=== PATIENT | female | born 1940 | race Caucasian/White ===

== ENCOUNTER 2021-04-07 12:23 | Emergency (ER) | payer MEDICARE, OTHER ==
[~2021-04-07 12:23] MED LIST: ALENDRONATE SOD70 MG PO; ASPIRIN CHEWABL81 MG PO; ASPIRIN EC81 MG PO; BENAZEPRIL HCL20 MG PO; BRILINTA90 MG PO; COREG 6.25MG6.25 MG PO; GARLIC1 EAC1 PO; LISINOPRIL5 MG PO; LOVAZA1 GM PO; MOBIC15 MG PO; NORVASC5 MG PO; PROTONIX 40MG T40 MG PO; REPATHA SC; REPATHA SU140 MG/1 M IJ; VITAMIN D2000 UNI1 PO; VITAMIN D35000 UNIT PO; XANAX0.25 MG PO; XARELTO10 MG PO; ZANTAC150 MG PO; ZESTRIL5 MG PO
[2021-04-07 15:10] LABS: BASOPHIL 0.3 % (0-2); EOSINOPHIL 0.6 % (0-7); HCT 43.7 % (37.0-47.0); HGB 14.7 g/dl (12.5-16.0); LYMPHOCYTE 28.5 % (15-48); MCH 31.2 pg (25.0-31.0); MCHC 33.6 g/dL (32.0-36.0); MCV 92.8 fL (78.0-100.0); MONOCYTE 7.5 % (0-12); MPV 9.2 fL (6.0-9.5); NEUTROPHIL 62.9 % (41-80); NRBC 0; PLT 354 K/uL (150-400); RBC 4.71 M/uL (4.20-5.40); RDW 13.3 % (11.5-14.0); WBC 6.3 K/uL (4.0-10.5)
[2021-04-07 15:57] LABS: BUN/CREAT RATIO (CALC) 10.3 RATIO; CREATININE 0.68 mg/dL (0.51-0.95)
[2021-04-07] MEDS ORDERED: ATARAX25 MG PO (16:07)
[2021-06-08] MEDS ORDERED: BUSPAR5 MG PO (15:16)
[2021-06-08] MEDS ORDERED: DIOVAN HCT 80-1 EACH PO (15:16)
[2021-06-08] MEDS ORDERED: BIOTIN1000 MCG PO (15:17)
[2021-06-08] MEDS ORDERED: VIT D3 PO (15:18)
[2021-06-09] MEDS ORDERED: TRAZODONE HCL50 MG PO (13:58)
== END 2021-04-07 16:30 | disposition home or self-care (01) ==
LOC: FER 12:23
PROVIDERS: Emergency Medicine
DX: I10 Essential (primary) hypertension (principal); Z79.899 Other long term (current) drug therapy
CPT/HCPCS: 36415; 80048; 84484; 85025; 93005

== ENCOUNTER 2021-06-29 05:36 | Day surgery (SDC) | payer MEDICARE, OTHER ==
[~2021-06-29] VITALS: Ht 158 cm; Wt 71.0 kg
[~2021-06-29 05:36] MED LIST changes: +ATARAX25 MG PO; +BIOTIN1000 MCG PO; +BUSPAR5 MG PO; +DIOVAN HCT 80-1 EACH PO; +TRAZODONE HCL50 MG PO; +VIT D3 PO
[2021-06-29] MEDS ORDERED: XARELTO10 MG PO (13:32)
[2021-06-29] MEDS ORDERED: OXYCODONE-ACET1 EAC1 PO (13:32)
[2021-06-29] MEDS ORDERED: FEOSOL325 MG PO (13:32)
--- NOTE | 2021-06-29 16:28 | NUR ---
PT HAD LEFT TOTAL KNEE REPLACEMENT THIS DATE. SHE WILL RETURN HOME. SHE HAS A ROLLING WALKER. [facility] TO DELIVER A 01/19 UPON DISCHARGE. PT. REQUESTED [facility] OUTPT. THERAPY. FIRST APPT. IS 07/01/2021 @ 1:00 P.M. PT. SIGNED REQUEST FORM.
[2021-06-30 06:57] LABS: BASOPHIL 0.1 % (0-2); EOSINOPHIL 0 % (0-7); HCT 33.5 % (37.0-47.0); HGB 11.2 g/dl (12.5-16.0); LYMPHOCYTE 6.2 % (15-48); MCH 31.4 pg (25.0-31.0); MCHC 33.4 g/dL (32.0-36.0); MCV 93.8 fL (78.0-100.0); MONOCYTE 5.3 % (0-12); MPV 9.3 fL (6.0-9.5); NRBC 0; PLT 284 K/uL (150-400); RBC 3.57 M/uL (4.20-5.40); RDW 12.2 % (11.5-14.0); WBC 11.1 K/uL (4.0-10.5)
[2021-06-30 07:05] LABS: BUN/CREAT RATIO (CALC) 13.1 RATIO; CREATININE 0.61 mg/dL (0.51-0.95); POTASSIUM 3.6 mmol/L (3.5-5.1)
== END 2021-06-30 10:55 | disposition home or self-care (01) ==
LOC: FAS 05:36
PROVIDERS: Legal Medicine
DX: M17.12 Unilateral primary osteoarthritis, left knee (principal); M21.062 Valgus deformity, not elsewhere classified, left knee; G89.18 Other acute postprocedural pain; I25.2 Old myocardial infarction; I25.10 Atherosclerotic heart disease of native coronary artery without angina pectoris; E78.5 Hyperlipidemia, unspecified; I10 Essential (primary) hypertension; F41.9 Anxiety disorder, unspecified; K21.9 Gastro-esophageal reflux disease without esophagitis; Z95.5 Presence of coronary angioplasty implant and graft; Z88.8 Allergy status to other drugs, medicaments and biological substances; Z79.82 Long term (current) use of aspirin; Z79.899 Other long term (current) drug therapy
CPT/HCPCS: 36415; 73560; 80048; 85025; 86850; 86880; 86900; 86901; 94010; 97116; 97161; 97165; 97535; C1713; C1776; J0171; J0697; J0735; J1100; J1885; J2250; J2270; J2405; J2704; J2795; J3010; J7120

== ENCOUNTER 2021-09-04 08:43 | Emergency (ER) | payer MEDICARE, OTHER ==
[~2021-09-04] VITALS: Ht 160 cm; Wt 72.6 kg
[~2021-09-04 08:43] MED LIST changes: +FEOSOL325 MG PO; +OXYCODONE-ACET1 EAC1 PO
[2021-09-04 09:51] LABS: BASOPHIL 0.3 % (0-2); EOSINOPHIL 0.7 % (0-7); HCT 43.4 % (37.0-47.0); HGB 14.8 g/dl (12.5-16.0); LYMPHOCYTE 18.2 % (15-48); MCH 31.2 pg (25.0-31.0); MCHC 34.1 g/dL (32.0-36.0); MCV 91.6 fL (78.0-100.0); MONOCYTE 8.4 % (0-12); MPV 9.5 fL (6.0-9.5); NEUTROPHIL 72.3 % (41-80); NRBC 0; PLT 323 K/uL (150-400); RBC 4.74 M/uL (4.20-5.40); RDW 12.3 % (11.5-14.0)
[2021-09-04 10:22] LABS: CORONAVIRUS 2019 SARS-COV-2 NEGATIVE (NEGATIVE); INFLUENZA A NAA NEGATIVE (NEGATIVE)
[2021-09-04 10:31] LABS: BILIRUBIN NEGATIVE (NEGATIVE); BLOOD TRACE-INTACT Ery/uL (NEGATIVE); CLARITY CLEAR (CLEAR); COLOR YELLOW (YELLOW); GLUCOSE (U) NORMAL (NORMAL); LEUKOCYTES 3+ Leu/uL (NEGATIVE); NITRITE NEGATIVE (NEGATIVE); PROTEIN NEGATIVE (NEGATIVE); UROBILINOGEN 0.2 mg/dL (0.2-1.0)
[2021-09-04 10:43] LABS: BACTERIA 1+; URINARY RBC RARE; URINARY WBC 20-50
[2021-09-04 10:46] LABS: ALBUMIN 3.8 g/dL (3.4-5.0); BILIRUBIN - TOTAL 0.5 mg/dL (0.2-1.0); BUN/CREAT RATIO (CALC) 9.7 RATIO; CREATININE 0.72 mg/dL (0.51-0.95); GLOBULIN (CALCULATION) 3.3 g/dL; POTASSIUM 3.2 mmol/L (3.5-5.1); TOTAL PROTEIN 7.1 g/dL (6.4-8.2)
[2021-09-04] MEDS ORDERED: MACROBID100 MG PO (11:00)
== END 2021-09-04 12:15 | disposition home or self-care (01) ==
LOC: FER 08:43
PROVIDERS: Internal Medicine
DX: N39.0 Urinary tract infection, site not specified (principal); E87.6 Hypokalemia; I25.2 Old myocardial infarction; I10 Essential (primary) hypertension; Z20.822 Contact with and (suspected) exposure to COVID-19
CPT/HCPCS: 36415; 71045; 80053; 81001; 84145; 84443; 84484; 85025; 87088; 93005; J0696; J7040; U0002

== ENCOUNTER 2021-10-03 15:34 | Emergency (ER) | payer MEDICARE, OTHER ==
[~2021-10-03 15:34] MED LIST changes: +MACROBID100 MG PO
[2021-10-03 16:12] LABS: BASOPHIL 0.2 % (0-2); EOSINOPHIL 0.4 % (0-7); HCT 42.1 % (37.0-47.0); HGB 14.8 g/dl (12.5-16.0); LYMPHOCYTE 16.7 % (15-48); MCH 31.2 pg (25.0-31.0); MCHC 35.2 g/dL (32.0-36.0); MCV 88.6 fL (78.0-100.0); MONOCYTE 8.2 % (0-12); MPV 9.1 fL (6.0-9.5); NEUTROPHIL 74.1 % (41-80); NRBC 0; PLT 421 K/uL (150-400); RBC 4.75 M/uL (4.20-5.40); WBC 8.1 K/uL (4.0-10.5)
[2021-10-03 16:35] LABS: BUN/CREAT RATIO (CALC) 16.1 RATIO; CREATININE 0.56 mg/dL (0.51-0.95); POTASSIUM 3.4 mmol/L (3.5-5.1)
[2021-10-03 17:44] LABS: BILIRUBIN NEGATIVE (NEGATIVE); BLOOD NEGATIVE Ery/uL (NEGATIVE); CLARITY CLEAR (CLEAR); COLOR YELLOW (YELLOW); GLUCOSE (U) NORMAL (NORMAL); LEUKOCYTES NEGATIVE Leu/uL (NEGATIVE); NITRITE NEGATIVE (NEGATIVE); PROTEIN NEGATIVE (NEGATIVE); SPECIFIC GRAVITY 1.015 (1.001-1.030); UROBILINOGEN 0.2 mg/dL (0.2-1.0)
[2021-10-04] MEDS ORDERED: ONDANSETRON ODT4 MG PO ×2 (13:55→13:56)
[2021-10-04] MEDS ORDERED: BENTYL10 MG PO ×2 (13:55→13:56)
== END 2021-10-03 18:22 | disposition home or self-care (01) ==
LOC: FER 15:34
PROVIDERS: Emergency Medicine
DX: F41.9 Anxiety disorder, unspecified (principal); I25.10 Atherosclerotic heart disease of native coronary artery without angina pectoris
CPT/HCPCS: 36415; 71045; 80048; 81003; 84443; 84484; 85025; 93005

== ENCOUNTER 2021-10-05 07:34 | Emergency (ER) | payer MEDICARE, OTHER ==
[~2021-10-05 07:34] MED LIST changes: +BENTYL10 MG PO; +ONDANSETRON ODT4 MG PO
[2021-10-05 08:20] LABS: BASOPHIL 0.3 % (0-2); EOSINOPHIL 1.6 % (0-7); HCT 40.6 % (37.0-47.0); LYMPHOCYTE 17.5 % (15-48); MCH 30.6 pg (25.0-31.0); MCHC 34.5 g/dL (32.0-36.0); MCV 88.8 fL (78.0-100.0); NEUTROPHIL 68.3 % (41-80); NRBC 0; PLT 361 K/uL (150-400); RBC 4.57 M/uL (4.20-5.40); RDW 12.2 % (11.5-14.0); WBC 6.3 K/uL (4.0-10.5)
[2021-10-05 08:38] LABS: BUN/CREAT RATIO (CALC) 12.3 RATIO; CREATININE 0.65 mg/dL (0.51-0.95); POTASSIUM 3.6 mmol/L (3.5-5.1)
== END 2021-10-05 09:35 | disposition home or self-care (01) ==
LOC: FER 07:34
PROVIDERS: Emergency Medicine
DX: K52.9 Noninfective gastroenteritis and colitis, unspecified (principal); I10 Essential (primary) hypertension
CPT/HCPCS: 36415; 80048; 85025; J2405

== ENCOUNTER 2022-02-02 19:09 | Emergency (ER) | payer MEDICARE, OTHER | END 2022-02-02 20:30 | disposition home or self-care (01) | LOC: FER 19:09 | DX: S90.32XA Contusion of left foot, initial encounter (principal); I10 Essential (primary) hypertension; I25.2 Old myocardial infarction; Z88.8 Allergy status to other drugs, medicaments and biological substances; Z79.899 Other long term (current) drug therapy; Z79.82 Long term (current) use of aspirin; W20.8XXA Other cause of strike by thrown, projected or falling object, initial encounter; Y92.009 Unspecified place in unspecified non-institutional (private) residence as the place of occurrence of the external cause | CPT/HCPCS: 73620; J1885 ==